=== PATIENT | female | born 1975 | race Caucasian/White ===

== ENCOUNTER 2025-05-20 11:07 | Outpatient (REF) | payer MEDICAID, SELFPAY ==
[2025-05-20 13:29] LABS: Estimated Average Glucose 117 mg/dL; Hemoglobin A1c % 5.7 % (<6.0); Total Hemoglobin (HGBA1C) 3633.7258 umol/L
[2025-05-20 13:32] LABS: Anion Gap 12 (12-20); Blood Urea Nitrogen 22 mg/dL (9-16); Calcium 9.3 mg/dL (8.4-10.2); Carbon Dioxide 28 mmol/L (22-29); Chloride 105 mmol/L (96-108); Cholesterol 260 mg/dL (<200); Estimated Glomerular Filt Rate > 60; Glucose Random 96 mg/dL (60-115); HDL Cholesterol 43 mg/dL (>40); LDL Cholesterol Calculated 181 mg/dL (<100); Potassium 4.4 mmol/L (3.3-5.1); Sodium 141 mmol/L (135-145); Triglycerides 183 mg/dL (<150)
[2025-05-20 13:38] LABS: Creatinine Urine 124.71 mg/dL; Microalbum/Creatinine Ratio Ur 52.9 ug/mg cr (<30)
== END 2025-05-20 11:08 | disposition home or self-care (01) ==
LOC: HO.HHCL 11:07
PROVIDERS: PCP Nurse Practitioner; Visit Provider Nurse Practitioner
DX: Z86.79 Personal history of other diseases of the circulatory system (principal)
CPT/HCPCS: 36415; 80048; 80061; 82043; 82570; 83036